=== PATIENT | male | born 1980 ===

== ENCOUNTER 2022-11-25 05:12 | Day surgery (SDC) | payer OTHER ==
[~2022-11-25] VITALS: Ht 167.6 cm; Wt 98.0 kg
[~2022-11-25 05:12] MED LIST: ANTARA30 MG PO; CRESTOR20 MG PO
== END 2022-11-25 16:40 | disposition home or self-care (01) ==
LOC: CIR.AMB 05:12
PROVIDERS: ATTEND Colon & Rectal Surgery
DX: K60.3 Anal fistula (principal); K60.5 Anorectal fistula; Z20.822 Contact with and (suspected) exposure to COVID-19; I10 Essential (primary) hypertension